=== PATIENT | female | born 1945 | race Caucasian/White ===

== ENCOUNTER → 2016-05-28 | Outpatient (CLI) | payer MEDICARE, OTHER ==
[~2016-05-28] MED LIST: ADVAIR DIS1 PUFF/DO1 IH; AUGMENTIN875 MG PO; DEMADEX DPS100 MG PO; DIFLUCAN DPS150 MG PO; FEOSOL-DPS325 MG PO; KLOR-CON M2020 ME1 PO; METOPROLOL TART25 MG PO; MONTELUKAST SOD10 MG PO; NEURONTIN DPS100 MG PO; PROVENTIL HFA6.7 GM IH; REQUIP3 MG PO; SPIRONOLACT50 MG PO; TYLENOL #3 DPS1 TAB PO; ZITHROMAX250 MG PO
== END | disposition home or self-care (01) ==
LOC: RAD.S 10:27
DX: Z12.31 Encounter for screening mammogram for malignant neoplasm of breast (principal)

== ENCOUNTER → 2016-07-13 | Outpatient (CLI) | payer MEDICARE, OTHER | END | disposition home or self-care (01) | LOC: RAD.S 09:02 | DX: R93.8 Abnormal findings on diagnostic imaging of other specified body structures (principal); R91.1 Solitary pulmonary nodule ==

== ENCOUNTER → 2016-10-21 | Outpatient (CLI) | payer MEDICARE, OTHER | END | disposition home or self-care (01) | DX: R40.0 Somnolence (principal); G47.33 Obstructive sleep apnea (adult) (pediatric); G47.09 Other insomnia ==